=== PATIENT | male | born 1950 | race Caucasian/White ===

== ENCOUNTER 2019-12-10 10:53 | Emergency (ER) | payer MEDICARE ==
[~2019-12-10] VITALS: Ht 167.6 cm; Wt 122.6 kg
[~2019-12-10 10:53] MED LIST: BACL10TA2 PO; BLACK CHERRY CONCENT PO; HYDR-3965 PO; INDO50CA96 PO; LISI1TAB29 PO; METF500T PO; OMEG500C3 PO; PIRO20CA2 PO; URIC ACID PO; VITA1CAP PO; [UNRECOGNIZED DRUG - CODE] PO
[2019-12-10 13:16] LABS: BASOPHILS # (AUTO) 0.1 X10'3 (0-0.2); BASOPHILS % (AUTO) 1.2 % (0-1); EOSINOPHILS # (AUTO) 0.7 X10'3 (0-0.9); EOSINOPHILS % (AUTO) 6.2 % (0-6); HEMATOCRIT 40.1 % (42.0-52.0); HEMOGLOBIN 13.4 g/dl (14.0-17.9); LYMPHOCYTES # (AUTO) 2.7 X10'3 (1.1-4.8); LYMPHOCYTES % (AUTO) 24.7 % (21-51); MEAN CORPUSCULAR HEMOGLOBIN 29.4 PG (27.0-31.0); MEAN CORPUSCULAR HGB CONC 33.5 g/dL (33.0-36.5); MEAN CORPUSCULAR VOLUME 87.8 FL (78-98); MEAN PLATELET VOLUME 9.3 FL (7.4-10.4); MONOCYTES # (AUTO) 1.5 X10'3 (0-0.9); MONOCYTES % (AUTO) 13.7 % (2-12); NEUTROPHILS % (AUTO) 54.2 % (42-75); PLATELET COUNT 265 X10'3 (140-440); RED BLOOD COUNT 4.56 X10'6 (4.70-6.10); RED CELL DISTRIBUTION WIDTH 14.2 % (11.5-14.5); WHITE BLOOD COUNT 11.1 X10'3 (4.5-11.0)
[2019-12-10 13:22] LABS: ALANINE AMINOTRANSFERASE 24 U/L (12-78); ALBUMIN 3.4 G/DL (3.4-5.0); ALBUMIN/GLOBULIN RATIO 0.7 (1.1-1.5); ALKALINE PHOSPHATASE 78 IU/L (46-116); ANION GAP 6 (8-16); ASPARTATE AMINO TRANSFERASE 18 U/L (10-37); BILIRUBIN,TOTAL 0.3 MG/DL (0.1-1.0); BLOOD UREA NITROGEN 42 MG/DL (7-18); BUN/CREATININE RATIO 22.1 (5.4-32.0); CALCIUM 9.5 MG/DL (8.5-10.1); CHLORIDE 106 MMOL/L (99-107); GLUCOSE 124 MG/DL (70-104); POTASSIUM 4.3 MMOL/L (3.5-5.1); SODIUM 140 MMOL/L (135-145); TOTAL CARBON DIOXIDE 27.9 MMOL/L (24-32); eGFR 35 ML/MIN
[2019-12-10] MEDS ORDERED: CEPH500C5 PO (15:13)
[2019-12-10 15:35] VITALS: BP 141/89
== END 2019-12-10 15:37 | disposition home or self-care (01) ==
LOC: ER 10:54
DX: R60.9 Edema, unspecified (principal); R60.0 Localized edema; G47.30 Sleep apnea, unspecified; I12.9 Hypertensive chronic kidney disease with stage 1 through stage 4 chronic kidney disease, or unspecified chronic kidney disease; E11.22 Type 2 diabetes mellitus with diabetic chronic kidney disease; N18.9 Chronic kidney disease, unspecified; E66.01 Morbid (severe) obesity due to excess calories; Z56.0 Unemployment, unspecified; Z79.2 Long term (current) use of antibiotics; Z79.899 Other long term (current) drug therapy
CPT/HCPCS: 36415; 71045; 80053; 83880; 84484; 85025; 93005; 93971; 99285

== ENCOUNTER 2021-06-03 15:52 | Inpatient (IN) | payer MEDICARE ==
[~2021-06-03] VITALS: Ht 172.7 cm; Wt 115.0 kg
[2021-06-03 16:32] LABS: BASOPHILS % (AUTO) 0.3 % (0-1); EOSINOPHILS # (AUTO) 0.2 X10'3 (0-0.9); EOSINOPHILS % (AUTO) 1.9 % (0-6); HEMATOCRIT 37.6 % (42.0-52.0); HEMOGLOBIN 12.4 g/dl (14.0-17.9); LYMPHOCYTES # (AUTO) 1.2 X10'3 (1.1-4.8); LYMPHOCYTES % (AUTO) 12.7 % (21-51); MEAN CORPUSCULAR HEMOGLOBIN 29.8 PG (27.0-31.0); MEAN CORPUSCULAR VOLUME 90.4 FL (78-98); MEAN PLATELET VOLUME 8.6 FL (7.4-10.4); MONOCYTES # (AUTO) 1.2 X10'3 (0-0.9); MONOCYTES % (AUTO) 12.9 % (2-12); NEUTROPHILS # (AUTO) 6.6 X10'3 (1.8-7.7); NEUTROPHILS % (AUTO) 72.2 % (42-75); PLATELET COUNT 211 X10'3 (140-440); RED BLOOD COUNT 4.16 X10'6 (4.70-6.10); RED CELL DISTRIBUTION WIDTH 14.2 % (11.5-14.5); WHITE BLOOD COUNT 9.2 X10'3 (4.5-11.0)
[2021-06-03 16:41] LABS: D-DIMER 2.14 MG/L FEU (0-0.50)
[2021-06-03 16:44] LABS: ALANINE AMINOTRANSFERASE 43 U/L (12-78); ALBUMIN 3.1 G/DL (3.4-5.0); ALBUMIN/GLOBULIN RATIO 0.7 (1.1-1.5); ALKALINE PHOSPHATASE 56 IU/L (46-116); ANION GAP 10 (8-16); ASPARTATE AMINO TRANSFERASE 30 U/L (10-37); BILIRUBIN,TOTAL 0.4 MG/DL (0.1-1.0); BLOOD UREA NITROGEN 43 MG/DL (7-18); BUN/CREATININE RATIO 18.3 (5.4-32.0); C-REACTIVE PROTEIN 14.98 MG/DL (0.0-0.5); CALCIUM 8.2 MG/DL (8.5-10.1); CHLORIDE 105 MMOL/L (99-107); CREATININE 2.35 MG/DL (0.60-1.10); GLUCOSE 95 MG/DL (70-104); POTASSIUM 5.1 MMOL/L (3.5-5.1); SODIUM 139 MMOL/L (135-145); TOTAL CARBON DIOXIDE 23.8 MMOL/L (24-32); TOTAL PROTEIN 7.3 G/DL (6.4-8.2); eGFR 27 ML/MIN
[2021-06-03] MEDS ORDERED: ALLO100T25 PO (17:28)
[2021-06-03] MEDS ORDERED: TERB250T4 PO (17:28)
[2021-06-03] MEDS ORDERED: DICL20GE TP (17:28)
[2021-06-03] MEDS ORDERED: FENO54TA PO (17:28)
[2021-06-03] MEDS ORDERED: DICL25TA10 PO (17:28)
[2021-06-03] MEDS ORDERED: PRAV40TA3 PO (17:28)
[2021-06-03] MEDS ORDERED: CLON0.1T PO (17:28)
[2021-06-03] MEDS ORDERED: GABA600T13 PO (17:28)
[2021-06-03] MEDS ORDERED: GLYB5TAB7 PO (17:28)
[2021-06-03] MEDS ORDERED: ACET-3071 PO (17:28)
[2021-06-03] MEDS ORDERED: dexamethasone inj 8 MG in normal saline 50ml IV soln 50 ML IV ONE (17:50)
--- NOTE | 2021-06-03 19:33 | NUR ---
daniel covarrubias called to give phone number [phone]. update anaya number in computer [phone].
[2021-06-03] MEDS ORDERED: baclofen 10mg tablet PO PRN (20:45)
[2021-06-03] MEDS ORDERED: cloNIDine 0.1 mg tablet PO PRN (20:45)
[2021-06-03] MEDS ORDERED: HYDROmorphone inj. 0.5 MG/0.5 ML DISP.SYRIN IV PRN (20:50)
[2021-06-03] MEDS ORDERED: HYDROcodone/acetaminophen 10/325mg tab PO PRN (20:50)
[2021-06-03] MEDS ORDERED: diphenhydrAMINE 50 mg/ml inj IV PRN (20:50)
[2021-06-03] MEDS ORDERED: magnesium hydroxide 30ml (MOM) UD suspension PO PRN (20:50)
[2021-06-03] MEDS ORDERED: acetaminophen 650mg rectal suppository RC PRN (20:50)
[2021-06-03] MEDS ORDERED: ondansetron 4mg rapidly disintigrating tab PO PRN (20:50)
[2021-06-03] MEDS ORDERED: HYDROcodone/acetaminophen 5mg/325mg tablet PO PRN (20:50)
[2021-06-03] MEDS ORDERED: diphenhydrAMINE 25mg capsule PO PRN (20:50)
[2021-06-03] MEDS ORDERED: mag hydrox/Alum hydrox/simeth 30ml oral suspension PO PRN (20:50)
[2021-06-03] MEDS ORDERED: morphine 2 MG/ML inj. syringe IV PRN ×2 (20:50)
[2021-06-03] MEDS ORDERED: acetaminophen 325mg tablet PO PRN ×2 (20:50)
[2021-06-03] MEDS ORDERED: bisacodyl 10mg suppository rectal RC PRN (20:50)
[2021-06-03] MEDS ORDERED: ondansetron/PF 4mg/2ml inj IV PRN (20:50)
[2021-06-03 20:53] LABS: CLARITY,URINE CLEAR (Clear); COLOR,URINE YELLOW (Yellow); GLUCOSE, URINE NEGATIVE (Neg); KETONES,URINE NEGATIVE (Neg); LEUKOCYTE ESTERASE ,URINE NEGATIVE (Neg); NITRITES, URINE NEGATIVE (Neg); OCCULT BLOOD,URINE NEGATIVE (Neg); PROTEIN,URINE 30 mg/dl (Neg); UROBILINOGEN,URINE 0.2 E.U/dL (0.2-1.0)
[2021-06-03 20:56] LABS: UA COLLECTION TYPE URINAL
[2021-06-03 20:59] LABS: BACTERIA,URINE NONE SEEN /HPF (Neg); MUCUS STRANDS NONE SEEN /LPF (Neg); RBC,URINE NONE SEEN /HPF (0-2); SQUAMOUS EPITHELIAL CELL,UR FEW /LPF (FEW); WBC,URINE 0-4 /HPF (0-4)
[2021-06-03] MEDS ORDERED: dextrose 50%-water 50ml dispensing syringe IV PRN ×2 (21:00)
[2021-06-03] MEDS ORDERED: MESSAGE TO PHARMACY PO ONE (21:00)
[2021-06-03] MEDS ORDERED: ALBUTEROL INHALER 1 PUFF/90 MCG INHALER IH PRN (21:00)
[2021-06-03] MEDS ORDERED: temazepam 15mg capsule PO PRN (21:00)
[2021-06-03] MEDS ORDERED: dextrose ORAL solution 15 GM/59 ML bottle PO PRN ×2 (21:00)
[2021-06-03] MEDS ORDERED: glucagon, human recombinant 1mg kit SUBCUT PRN (21:00)
[2021-06-03] MEDS: atorvastatin 10mg tablet PO SCH (21:07)
[2021-06-03] MEDS: normal saline 1000ml 1,000 ML IV SCH (21:12)
[2021-06-03 21:42] LABS: HEMOGLOBIN A1C 6.6 % (4.5-6.2)
[2021-06-03 21:49] LABS: CREATINE KINASE 87 U/L (39-308); LIPASE 175 U/L (73-393); PHOSPHORUS 2.8 MG/DL (2.3-4.5); TROPONIN I < 0.04 NG/ML (0.0-0.05)
[2021-06-03 22:02] LABS: PARTIAL THROMBOPLASTIN TIME 32 SECONDS (22-32)
--- NOTE | 2021-06-03 22:02 | NUR ---
Patient in room ED 2. I have received report from Shagufta VERMA and had the opportunity to ask questions and assume patient care.
[2021-06-03 22:30] VITALS: BP 106/49
[2021-06-04 01:45] VITALS: BP 116/42
[2021-06-04 06:00] VITALS: BP 126/51
--- NOTE | 2021-06-04 06:16 | NUR ---
Patient in room ORTHO 4006. I have received report from LUCI monge and had the opportunity to ask questions and assume patient care.
--- NOTE | 2021-06-04 06:18 | NUR ---
Problems reprioritized. Patient report given, questions answered & plan of care reviewed with Manju VERMA.
[2021-06-04] MEDS: pantoprazole 40mg Tablet.DR PO SCH (07:04)
[2021-06-04] MEDS: gabapentin 300mg capsule PO SCH ×2 (07:04→22:08)
[2021-06-04] MEDS: docusate sod 100mg capsule PO SCH ×2 (07:04→22:07)
[2021-06-04] MEDS: fenofibrate 145mg tablet PO SCH (07:04)
[2021-06-04] MEDS: dexamethasone inj 6 MG in normal saline 50ml IV soln 50 ML IV SCH ×2 (07:05→22:07)
[2021-06-04] MEDS: CefTRIAXone/D5W-Rocephin 1gm 50 ML IV SCH (07:05)
[2021-06-04 07:09] LABS: BASOPHILS % (AUTO) 0.1 % (0-1); EOSINOPHILS % (AUTO) 0 % (0-6); HEMATOCRIT 37.7 % (42.0-52.0); HEMOGLOBIN 12.6 g/dl (14.0-17.9); LYMPHOCYTES # (AUTO) 1.3 X10'3 (1.1-4.8); LYMPHOCYTES % (AUTO) 14.7 % (21-51); MEAN CORPUSCULAR HGB CONC 33.5 g/dL (33.0-36.5); MEAN CORPUSCULAR VOLUME 89.6 FL (78-98); MEAN PLATELET VOLUME 8.7 FL (7.4-10.4); MONOCYTES # (AUTO) 0.7 X10'3 (0-0.9); MONOCYTES % (AUTO) 8.1 % (2-12); NEUTROPHILS % (AUTO) 77.1 % (42-75); PLATELET COUNT 225 X10'3 (140-440); RED BLOOD COUNT 4.21 X10'6 (4.70-6.10); RED CELL DISTRIBUTION WIDTH 13.7 % (11.5-14.5); WHITE BLOOD COUNT 9.1 X10'3 (4.5-11.0)
[2021-06-04 07:38] LABS: ALANINE AMINOTRANSFERASE 36 U/L (12-78); ALBUMIN 2.9 G/DL (3.4-5.0); ALBUMIN/GLOBULIN RATIO 0.6 (1.1-1.5); ALKALINE PHOSPHATASE 58 IU/L (46-116); ANION GAP 11 (8-16); ASPARTATE AMINO TRANSFERASE 27 U/L (10-37); BILIRUBIN,TOTAL 0.3 MG/DL (0.1-1.0); BLOOD UREA NITROGEN 42 MG/DL (7-18); BUN/CREATININE RATIO 19.4 (5.4-32.0); CALCIUM 8.4 MG/DL (8.5-10.1); CHLORIDE 106 MMOL/L (99-107); CHOL/HDL RATIO 3.3 (0.00-4.99); CHOLESTEROL 111 MG/DL (0-200); CREATININE 2.16 MG/DL (0.60-1.10); GLUCOSE 210 MG/DL (70-104); HDL CHOLESTEROL 34 MG/DL (35-60); LDL CHOLESTEROL 56 MG/DL (50-100); POTASSIUM 5.1 MMOL/L (3.5-5.1); SODIUM 141 MMOL/L (135-145); TOTAL CARBON DIOXIDE 24.5 MMOL/L (24-32); TOTAL PROTEIN 7.4 G/DL (6.4-8.2); TRIGLYCERIDES 94 MG/DL (20-135); eGFR 30 ML/MIN
[2021-06-04] MEDS ORDERED: azithromycin/NS 500mg/250ml 250 ML IV SCH ×2 (08:00→09:31)
[2021-06-04] MEDS ORDERED: lisinopril 20mg tablet PO SCH (08:00)
[2021-06-04] MEDS ORDERED: HYDROchlorothiazide 25mg tablet PO SCH (08:00)
[2021-06-04] MEDS ORDERED: enoxaparin 40mg/0.4ml syringe SUBCUT SCH (08:00)
[2021-06-04] MEDS ORDERED: fenofibrate 48mg tablet PO SCH (08:00)
--- NOTE | 2021-06-04 09:12 | NUR ---
DM consult: Pt with A1c 6.6%, DM education not warranted at this time. Will continue to follow. Addendum: 06/04/21 at [address] Amended: Links added.
[2021-06-04] MEDS ORDERED: PERFLUTREN PROTEIN-A MICROSPHR (Optison) 0.22 MG/ML 3ML VIAL IV ONE (09:30)
[2021-06-04 10:00] VITALS: BP 130/63
[2021-06-04] MEDS: azithromycin/NS 500mg/250ml 250 ML IV SCH (10:44)
[2021-06-04] MEDS ORDERED: PERFLUTREN PROTEIN-A MICROSPHR (Optison) 0.22 MG/ML 3ML VIAL IV PRN (11:00)
--- NOTE | 2021-06-04 13:17 | NUR ---
Page Sent PAGER ID: [phone] MESSAGE: [id number] Regarding RM 4006 Addison Batres- Critical Results* Gram + Cocci in clusters 1 bottle-anerobic.
[2021-06-04] MEDS: insulin Lispro (HumaLOG) vial - multi-dose SQ SCH ×2 (13:57→19:52)
[2021-06-04 14:00] VITALS: BP 120/66
[2021-06-04 18:00] VITALS: BP 115/53
--- NOTE | 2021-06-04 18:00 | NUR ---
Patient in room ORTHO 4006. I have received report from Manju VERMA and had the opportunity to ask questions and assume patient care. Addendum: 06/04/21 at 1857 by Audrey Ruth RN Amended: Links added.
--- NOTE | 2021-06-04 18:55 | NUR ---
Problems reprioritized. Patient report given,gertrude, RN questions answered & plan of care reviewed with .
--- NOTE | 2021-06-04 19:52 | NUR ---
Pt. awake A & O at this time with no c/o pain or SOB breath. Isolation for precaution for COVID-19 observed. Addendum: 06/05/21 at 0504 by Audrey Ruth RN Amended: Links added.
--- NOTE | 2021-06-04 21:30 | NUR ---
Pt. awake A & O at this time. C/o pain of 04/09 to rt shoulder but pain medication not due at this time; assisted pt to reposition intervention effective. Bed and tab alarms activated, bed in low position, and call light within reach. Reminded pt. to call nurse with needs; pt. verbalized understanding. Addendum: 06/05/21 at 0452 by Audrey Ruth RN Amended: Links added. Addendum: 06/05/21 at 0459 by Audrey Ruth RN Wrong pt.
[2021-06-04 22:00] VITALS: BP 113/68
[2021-06-04] MEDS: atorvastatin 10mg tablet PO SCH (22:08)
[2021-06-05] MEDS: VANCOMYCIN 750MG IV in NS 250 ML IV SCH (01:56)
[2021-06-05 02:00] VITALS: BP 124/66
--- NOTE | 2021-06-05 02:00 | NUR ---
Current Ns still infusing almost half full. Addendum: 06/05/21 at 0657 by Audrey Ruth RN Amended: Links added.
[2021-06-05] MEDS: normal saline 1000ml 1,000 ML IV SCH ×3 (02:50→21:49)
--- NOTE | 2021-06-05 04:52 | NUR ---
Pt. slept well with x 2 c/o pain medicated as ordered. No seizure episodes nor impulsive behavior this shift. Rails padded for safety. Addendum: 06/05/21 at 0454 by Audrey Ruth RN Amended: Links added. Addendum: 06/05/21 at 0457 by Audrey Ruth RN Wrong pt!
--- NOTE | 2021-06-05 05:04 | NUR ---
Pt. slept well with no SOB episodes and no hypoglycemia event this shift. Addendum: 06/05/21 at 0506 by Audrey Ruth RN Amended: Links added.
--- NOTE | 2021-06-05 06:53 | NUR ---
Patient in room ORTHO 4006. I have received report from Audrey VERMA and had the opportunity to ask questions and assume patient care.
--- NOTE | 2021-06-05 06:57 | NUR ---
Problems reprioritized. Patient report given, questions answered & plan of care reviewed with Lacey VERMA. Addendum: 06/05/21 at 0658 by Audrey Ruth RN Amended: Links added.
[2021-06-05 07:06] LABS: BASOPHILS % (AUTO) 0.1 % (0-1); EOSINOPHILS % (AUTO) 0 % (0-6); HEMATOCRIT 35.7 % (42.0-52.0); HEMOGLOBIN 11.6 g/dl (14.0-17.9); LYMPHOCYTES # (AUTO) 1.3 X10'3 (1.1-4.8); LYMPHOCYTES % (AUTO) 10.2 % (21-51); MEAN CORPUSCULAR HEMOGLOBIN 29.7 PG (27.0-31.0); MEAN CORPUSCULAR HGB CONC 32.5 g/dL (33.0-36.5); MEAN CORPUSCULAR VOLUME 91.3 FL (78-98); MEAN PLATELET VOLUME 8.5 FL (7.4-10.4); MONOCYTES # (AUTO) 1.2 X10'3 (0-0.9); MONOCYTES % (AUTO) 9.4 % (2-12); NEUTROPHILS # (AUTO) 10.4 X10'3 (1.8-7.7); NEUTROPHILS % (AUTO) 80.3 % (42-75); PLATELET COUNT 238 X10'3 (140-440); RED BLOOD COUNT 3.91 X10'6 (4.70-6.10); RED CELL DISTRIBUTION WIDTH 13.7 % (11.5-14.5); WHITE BLOOD COUNT 12.9 X10'3 (4.5-11.0)
[2021-06-05 07:21] LABS: ALANINE AMINOTRANSFERASE 31 U/L (12-78); ALBUMIN 2.7 G/DL (3.4-5.0); ALBUMIN/GLOBULIN RATIO 0.6 (1.1-1.5); ALKALINE PHOSPHATASE 45 IU/L (46-116); ANION GAP 10 (8-16); ASPARTATE AMINO TRANSFERASE 34 U/L (10-37); BILIRUBIN,TOTAL 0.4 MG/DL (0.1-1.0); BLOOD UREA NITROGEN 43 MG/DL (7-18); BUN/CREATININE RATIO 21.2 (5.4-32.0); CALCIUM 8.4 MG/DL (8.5-10.1); CHLORIDE 108 MMOL/L (99-107); CREATININE 2.03 MG/DL (0.60-1.10); GLUCOSE 173 MG/DL (70-104); POTASSIUM 4.9 MMOL/L (3.5-5.1); SODIUM 141 MMOL/L (135-145); TOTAL CARBON DIOXIDE 22.8 MMOL/L (24-32); TOTAL PROTEIN 6.9 G/DL (6.4-8.2); eGFR 32 ML/MIN
[2021-06-05] MEDS: pantoprazole 40mg Tablet.DR PO SCH (07:44)
[2021-06-05] MEDS: docusate sod 100mg capsule PO SCH ×2 (07:44→20:00)
[2021-06-05] MEDS: gabapentin 300mg capsule PO SCH ×2 (07:44→20:00)
[2021-06-05] MEDS: fenofibrate 145mg tablet PO SCH (07:44)
[2021-06-05] MEDS: CefTRIAXone/D5W-Rocephin 1gm 50 ML IV SCH (07:45)
[2021-06-05] MEDS: dexamethasone inj 6 MG in normal saline 50ml IV soln 50 ML IV SCH ×2 (07:45→20:01)
[2021-06-05] MEDS: enoxaparin 30mg/0.3ml syringe SUBCUT SCH (07:45)
[2021-06-05 08:12] VITALS: BP 122/68
[2021-06-05] MEDS: azithromycin/NS 500mg/250ml 250 ML IV SCH (10:30)
[2021-06-05] MEDS: insulin Lispro (HumaLOG) vial - multi-dose SQ SCH ×3 (10:33→20:14)
[2021-06-05 12:00] VITALS: BP 124/63
[2021-06-05 18:30] VITALS: BP 132/69
[2021-06-05] MEDS: lactobacillus rhamnosus 10,000 MMU CELLS/CAPSULE PO SCH (20:00)
[2021-06-05] MEDS: atorvastatin 10mg tablet PO SCH (20:08)
[2021-06-05 22:00] VITALS: BP 142/75
[2021-06-06 02:30] VITALS: BP 133/76
[2021-06-06] MEDS: VANCOMYCIN 750MG IV in NS 250 ML IV SCH (02:32)
[2021-06-06] MEDS: normal saline 1000ml 1,000 ML IV SCH (04:50)
[2021-06-06 05:10] VITALS: BP 150/83
--- NOTE | 2021-06-06 06:30 | NUR ---
Patient in room ORTHO 4006. I have received report from Violette RN and had the opportunity to ask questions and assume patient care.
[2021-06-06 07:06] LABS: BASOPHILS % (AUTO) 0.1 % (0-1); EOSINOPHILS % (AUTO) 0 % (0-6); HEMATOCRIT 36.3 % (42.0-52.0); HEMOGLOBIN 11.9 g/dl (14.0-17.9); LYMPHOCYTES # (AUTO) 1.5 X10'3 (1.1-4.8); MEAN CORPUSCULAR HEMOGLOBIN 29.8 PG (27.0-31.0); MEAN CORPUSCULAR HGB CONC 32.9 g/dL (33.0-36.5); MEAN CORPUSCULAR VOLUME 90.5 FL (78-98); MEAN PLATELET VOLUME 8.8 FL (7.4-10.4); MONOCYTES # (AUTO) 0.9 X10'3 (0-0.9); MONOCYTES % (AUTO) 9.1 % (2-12); NEUTROPHILS # (AUTO) 7.4 X10'3 (1.8-7.7); NEUTROPHILS % (AUTO) 75.8 % (42-75); PLATELET COUNT 255 X10'3 (140-440); RED BLOOD COUNT 4.01 X10'6 (4.70-6.10); RED CELL DISTRIBUTION WIDTH 13.9 % (11.5-14.5); WHITE BLOOD COUNT 9.7 X10'3 (4.5-11.0)
[2021-06-06 07:12] LABS: ALANINE AMINOTRANSFERASE 65 U/L (12-78); ALBUMIN 2.5 G/DL (3.4-5.0); ALBUMIN/GLOBULIN RATIO 0.6 (1.1-1.5); ALKALINE PHOSPHATASE 55 IU/L (46-116); ANION GAP 11 (8-16); ASPARTATE AMINO TRANSFERASE 61 U/L (10-37); BILIRUBIN,TOTAL 0.4 MG/DL (0.1-1.0); BLOOD UREA NITROGEN 43 MG/DL (7-18); BUN/CREATININE RATIO 25.1 (5.4-32.0); CHLORIDE 110 MMOL/L (99-107); CREATININE 1.71 MG/DL (0.60-1.10); GLUCOSE 177 MG/DL (70-104); SODIUM 144 MMOL/L (135-145); TOTAL CARBON DIOXIDE 23.2 MMOL/L (24-32); TOTAL PROTEIN 6.8 G/DL (6.4-8.2); eGFR 40 ML/MIN
[2021-06-06] MEDS: gabapentin 300mg capsule PO SCH (07:47)
[2021-06-06] MEDS: fenofibrate 145mg tablet PO SCH (07:47)
[2021-06-06] MEDS: docusate sod 100mg capsule PO SCH (07:47)
[2021-06-06] MEDS: lactobacillus rhamnosus 10,000 MMU CELLS/CAPSULE PO SCH (07:47)
[2021-06-06] MEDS: pantoprazole 40mg Tablet.DR PO SCH (07:47)
[2021-06-06] MEDS: enoxaparin 30mg/0.3ml syringe SUBCUT SCH (07:48)
[2021-06-06] MEDS: CefTRIAXone/D5W-Rocephin 1gm 50 ML IV SCH (07:48)
[2021-06-06] MEDS: dexamethasone inj 6 MG in normal saline 50ml IV soln 50 ML IV SCH (07:48)
[2021-06-06] MEDS: insulin Lispro (HumaLOG) vial - multi-dose SQ SCH ×2 (09:46→13:33)
[2021-06-06] MEDS: azithromycin/NS 500mg/250ml 250 ML IV SCH (09:47)
[2021-06-06] MEDS ORDERED: DEC4T PO (09:55)
[2021-06-06] MEDS ORDERED: LEVO500T89 PO (09:56)
[2021-06-06 11:39] VITALS: BP 133/60
--- NOTE | 2021-06-06 13:46 | NUR ---
Patient discharged to home, gave discharge instructions to the patient himself and his via the phone. Patient left in stable condition and did not need home oxygen as he was 94% on room air while ambulating. 20 gauge piv removed from left hand, no complications. Prescriptions were sent to [facility] in [place], left room via wheelchair to private vehicle with son lyndsey.
[2021-06-08] MEDS ORDERED: VANCOMYCIN LEVEL IV ONE (01:30)
== END 2021-06-06 13:50 | disposition home or self-care (01) | DRG 177 ==
LOC: ER 15:53 → ED HOLD 20:57 → ORTHO 4S 22:19
PROVIDERS: ADMIT Family Medicine; ATTEND Internal Medicine
PROC: CB121ZZ Planar Nuclear Medicine Imaging of Lungs and Bronchi using Technetium 99m (Tc-99m) (ICD-10-PCS; 2021-06-03)
PROC: 5A09357 Assistance with Respiratory Ventilation, Less than 24 Consecutive Hours, Continuous Positive Airway Pressure (ICD-10-PCS; principal; 2021-06-04)
PROC: 5A09357 Assistance with Respiratory Ventilation, Less than 24 Consecutive Hours, Continuous Positive Airway Pressure (ICD-10-PCS; 2021-06-06)
DX: U07.1 COVID-19 (principal); J12.82 Pneumonia due to coronavirus disease 2019; J96.01 Acute respiratory failure with hypoxia; N17.9 Acute kidney failure, unspecified; E11.22 Type 2 diabetes mellitus with diabetic chronic kidney disease; E66.01 Morbid (severe) obesity due to excess calories; E78.5 Hyperlipidemia, unspecified; G47.33 Obstructive sleep apnea (adult) (pediatric); E11.42 Type 2 diabetes mellitus with diabetic polyneuropathy; I12.9 Hypertensive chronic kidney disease with stage 1 through stage 4 chronic kidney disease, or unspecified chronic kidney disease; M10.9 Gout, unspecified; N18.9 Chronic kidney disease, unspecified; Z68.38 Body mass index [BMI] 38.0-38.9, adult; Z79.84 Long term (current) use of oral hypoglycemic drugs; Z87.891 Personal history of nicotine dependence; Z56.0 Unemployment, unspecified; Z79.899 Other long term (current) drug therapy
CPT/HCPCS: 36415; 71045; 78580; 80053; 80061; 81001; 82550; 82948; 83036; 83605; 83690; 83735; 83880; 84100; 84145; 84443; 84484; 85025; 85379; 85610; 85651; 85730; 86140; 87040; 87077; 87081; 87186; 87635; 93005; 93306; 94660; 94760; 96365; 99285; A9540; C9803; G0378; J0456; J0696; J1100; J1650; J1815; J3370; J7030; J7050

== ENCOUNTER 2021-08-02 09:43 | Inpatient (IN) | payer MEDICARE ==
[~2021-08-02] VITALS: Ht 152.4 cm; Wt 111.0 kg
[~2021-08-02 09:43] MED LIST changes: +ACET-3071 PO; +ALLO100T25 PO; -BLACK CHERRY CONCENT PO; +CLON0.1T PO; +DICL20GE TP; +DICL25TA10 PO; +FENO54TA PO; +GABA600T13 PO; +GLYB5TAB7 PO; -HYDR-3965 PO; -INDO50CA96 PO; -LISI1TAB29 PO; +LISI1TAB53 PO; -OMEG500C3 PO; -PIRO20CA2 PO; +PRAV40TA3 PO; +TERB250T89 PO; -URIC ACID PO; -VITA1CAP PO; -[UNRECOGNIZED DRUG - CODE] PO
[2021-08-02 11:29] LABS: BASOPHILS # (AUTO) 0.1 X10'3 (0-0.2); BASOPHILS % (AUTO) 0.6 % (0-1); EOSINOPHILS # (AUTO) 0.2 X10'3 (0-0.9); HEMATOCRIT 39.8 % (42.0-52.0); HEMOGLOBIN 13.4 g/dl (14.0-17.9); LYMPHOCYTES # (AUTO) 2.6 X10'3 (1.1-4.8); MEAN CORPUSCULAR HEMOGLOBIN 29.9 PG (27.0-31.0); MEAN CORPUSCULAR HGB CONC 33.6 g/dL (33.0-36.5); MEAN CORPUSCULAR VOLUME 88.9 FL (78-98); MEAN PLATELET VOLUME 8.6 FL (7.4-10.4); MONOCYTES # (AUTO) 2.3 X10'3 (0-0.9); MONOCYTES % (AUTO) 14.6 % (2-12); NEUTROPHILS # (AUTO) 10.4 X10'3 (1.8-7.7); NEUTROPHILS % (AUTO) 66.8 % (42-75); PLATELET COUNT 316 X10'3 (140-440); RED BLOOD COUNT 4.48 X10'6 (4.70-6.10); WHITE BLOOD COUNT 15.5 X10'3 (4.5-11.0)
[2021-08-02 11:40] LABS: ALANINE AMINOTRANSFERASE 40 U/L (12-78); ALBUMIN 3.4 G/DL (3.4-5.0); ALBUMIN/GLOBULIN RATIO 0.7 (1.1-1.5); ALKALINE PHOSPHATASE 53 IU/L (46-116); ANION GAP 13 (8-16); ASPARTATE AMINO TRANSFERASE 19 U/L (10-37); BILIRUBIN,TOTAL 0.7 MG/DL (0.1-1.0); BLOOD UREA NITROGEN 43 MG/DL (7-18); BUN/CREATININE RATIO 24.4 (5.4-32.0); C-REACTIVE PROTEIN 6.96 MG/DL (0.0-0.5); CALCIUM 10.1 MG/DL (8.5-10.1); CHLORIDE 103 MMOL/L (99-107); CREATININE 1.76 MG/DL (0.60-1.10); GLUCOSE 124 MG/DL (70-104); POTASSIUM 4.3 MMOL/L (3.5-5.1); SODIUM 141 MMOL/L (135-145); TOTAL CARBON DIOXIDE 25.5 MMOL/L (24-32); TOTAL PROTEIN 8.4 G/DL (6.4-8.2); eGFR 38 ML/MIN
[2021-08-02 12:27] LABS: PLATELET ESTIMATE NORMAL; TOTAL CELLS COUNTED 100
[2021-08-02] MEDS ORDERED: morphine 4 MG/ML inj SYRINge IV ONE (16:10)
[2021-08-02] MEDS ORDERED: morphine 2 MG/ML inj. syringe IV PRN ×3 (16:10→19:45)
--- NOTE | 2021-08-02 16:35 | NUR ---
relieving RN for break, pt is resting quietly on gurney, resp even and unlabored, c/o pain 07/10 to rt hand and elbow
[2021-08-02] MEDS ORDERED: methylPREDNISolone sod succ 125mg/2ml vial IV ONE (16:55)
--- NOTE | 2021-08-02 18:30 | NUR ---
Gait test: Pt was bearly able to stand at the edge of the bed (with max assist). His legs were trembling. Assisted pt back to bed.
[2021-08-02] MEDS ORDERED: acetaminophen 325mg tablet PO PRN (19:45)
[2021-08-02] MEDS ORDERED: ondansetron/PF 4mg/2ml inj IV PRN (19:45)
[2021-08-02] MEDS ORDERED: potassium Cl 20 mEq SR tablet PO PRN ×2 (19:45)
[2021-08-02] MEDS ORDERED: dextrose ORAL solution 15 GM/59 ML bottle PO PRN ×2 (19:45)
[2021-08-02] MEDS ORDERED: dextrose 50%-water 50ml dispensing syringe IV PRN ×2 (19:45)
[2021-08-02] MEDS ORDERED: MESSAGE TO PHARMACY PO ONE (19:45)
[2021-08-02] MEDS ORDERED: potassium Cl 40MEQ/1/2NS 520ml 520 ML IV PRN ×2 (19:45)
[2021-08-02] MEDS ORDERED: mag hydrox/Alum hydrox/simeth 30ml oral suspension PO PRN (19:45)
[2021-08-02] MEDS ORDERED: magnesium hydroxide 30ml (MOM) UD suspension PO PRN (19:45)
[2021-08-02] MEDS ORDERED: glucagon, human recombinant 1mg kit SUBCUT PRN (19:45)
[2021-08-02] MEDS: docusate sod 100mg capsule PO SCH (20:00)
[2021-08-02] MEDS: methylPREDNISolone sod succ/PF 40mg inj. IV SCH (20:00)
[2021-08-02] MEDS ORDERED: methylPREDNISolone sod succ 125mg/2ml vial IV SCH (20:00)
[2021-08-02] MEDS ORDERED: SITA100T11 PO (20:51)
[2021-08-02 21:00] LABS: RHEUM FACTOR QUAL REFLEX TITER NEGATIVE (Neg)
[2021-08-02] MEDS: insulin glargine (Lantus) pen - multi-dose SQ SCH (21:00)
--- NOTE | 2021-08-02 21:02 | NUR ---
There is an order for cpap, he can use the hospitals but will wait for his to bring his tomorrow.
[2021-08-02] MEDS: heparin, porcine 5000 units/ml vial SQ SCH (21:17)
[2021-08-02] MEDS: K and/or MAG REPLACEMENT MC SCH (21:55)
[2021-08-02] MEDS ORDERED: baclofen 10mg tablet PO PRN (23:05)
[2021-08-02] MEDS ORDERED: ACETAMINOPHEN PO PRN (23:05)
[2021-08-02] MEDS ORDERED: cloNIDine 0.1 mg tablet PO PRN (23:05)
--- NOTE | 2021-08-02 23:30 | NUR ---
Pt was given a turkey sandwich and milk.
--- NOTE | 2021-08-03 02:30 | NUR ---
PT WAS PLACED ON A HOSPITAL BED, AMBULATED SEVERAL STEPS TO CHAIR WITH ASSIST
[2021-08-03 02:47] LABS: BASOPHILS # (AUTO) 0.1 X10'3 (0-0.2); BASOPHILS % (AUTO) 0.8 % (0-1); EOSINOPHILS % (AUTO) 0.1 % (0-6); HEMATOCRIT 37.2 % (42.0-52.0); HEMOGLOBIN 12.4 g/dl (14.0-17.9); LYMPHOCYTES # (AUTO) 1.4 X10'3 (1.1-4.8); LYMPHOCYTES % (AUTO) 9.8 % (21-51); MEAN CORPUSCULAR HEMOGLOBIN 29.4 PG (27.0-31.0); MEAN CORPUSCULAR HGB CONC 33.4 g/dL (33.0-36.5); MEAN CORPUSCULAR VOLUME 88.2 FL (78-98); MEAN PLATELET VOLUME 8.6 FL (7.4-10.4); MONOCYTES # (AUTO) 1.1 X10'3 (0-0.9); MONOCYTES % (AUTO) 7.7 % (2-12); NEUTROPHILS # (AUTO) 11.8 X10'3 (1.8-7.7); NEUTROPHILS % (AUTO) 81.6 % (42-75); PLATELET COUNT 310 X10'3 (140-440); RED BLOOD COUNT 4.22 X10'6 (4.70-6.10); RED CELL DISTRIBUTION WIDTH 15.4 % (11.5-14.5); WHITE BLOOD COUNT 14.5 X10'3 (4.5-11.0)
[2021-08-03 02:59] LABS: ALANINE AMINOTRANSFERASE 35 U/L (12-78); ALBUMIN 2.9 G/DL (3.4-5.0); ALBUMIN/GLOBULIN RATIO 0.6 (1.1-1.5); ALKALINE PHOSPHATASE 67 IU/L (46-116); ANION GAP 11 (8-16); ASPARTATE AMINO TRANSFERASE 26 U/L (10-37); BILIRUBIN,TOTAL 0.8 MG/DL (0.1-1.0); BLOOD UREA NITROGEN 50 MG/DL (7-18); BUN/CREATININE RATIO 24.5 (5.4-32.0); CALCIUM 9.7 MG/DL (8.5-10.1); CHLORIDE 104 MMOL/L (99-107); CREATININE 2.04 MG/DL (0.60-1.10); GLUCOSE 292 MG/DL (70-104); POTASSIUM 4.5 MMOL/L (3.5-5.1); SODIUM 140 MMOL/L (135-145); TOTAL CARBON DIOXIDE 24.7 MMOL/L (24-32); TOTAL PROTEIN 7.8 G/DL (6.4-8.2); eGFR 32 ML/MIN
[2021-08-03] MEDS: docusate sod 100mg capsule PO SCH ×2 (08:00→20:26)
[2021-08-03] MEDS: K and/or MAG REPLACEMENT MC SCH ×2 (08:00→20:00)
[2021-08-03] MEDS: lisinopril 20mg tablet PO SCH (08:00)
[2021-08-03] MEDS: gabapentin 300mg capsule PO SCH ×2 (08:00→20:25)
[2021-08-03] MEDS ORDERED: HYDROchlorothiazide 25mg tablet PO SCH (08:00)
[2021-08-03] MEDS: heparin, porcine 5000 units/ml vial SQ SCH ×2 (08:00→20:26)
[2021-08-03] MEDS: methylPREDNISolone sod succ/PF 40mg inj. IV SCH ×2 (08:00→20:00)
[2021-08-03] MEDS: allopurinol 100mg tablet PO SCH (08:30)
[2021-08-03] MEDS: terbinafine 250mg tablet PO SCH (15:10)
[2021-08-03] MEDS: fenofibrate 48mg tablet PO SCH (15:10)
[2021-08-03 16:22] VITALS: BP 138/68
[2021-08-03 20:00] VITALS: BP 131/69
[2021-08-03] MEDS: insulin Lispro (HumaLOG) vial - multi-dose SQ SCH (20:23)
[2021-08-03] MEDS: pravastatin 40mg tablet PO SCH (22:25)
[2021-08-03] MEDS: insulin glargine (Lantus) pen - multi-dose SQ SCH (22:25)
[2021-08-04] VITALS: BP 125/58
[2021-08-04] MEDS ORDERED: HYDROcodone/acetaminophen 10/325mg tab PO PRN (03:15)
[2021-08-04] MEDS: HYDROcodone/acetaminophen 10/325mg tab PO PRN ×2 (03:29→20:27)
[2021-08-04 06:13] LABS: BASOPHILS # (AUTO) 0.1 X10'3 (0-0.2); BASOPHILS % (AUTO) 0.6 % (0-1); EOSINOPHILS # (AUTO) 0.1 X10'3 (0-0.9); EOSINOPHILS % (AUTO) 0.6 % (0-6); HEMATOCRIT 35.6 % (42.0-52.0); HEMOGLOBIN 11.9 g/dl (14.0-17.9); LYMPHOCYTES # (AUTO) 2.3 X10'3 (1.1-4.8); LYMPHOCYTES % (AUTO) 14.1 % (21-51); MEAN CORPUSCULAR HEMOGLOBIN 29.5 PG (27.0-31.0); MEAN CORPUSCULAR HGB CONC 33.5 g/dL (33.0-36.5); MEAN CORPUSCULAR VOLUME 88.1 FL (78-98); MEAN PLATELET VOLUME 8.8 FL (7.4-10.4); MONOCYTES % (AUTO) 12.2 % (2-12); NEUTROPHILS # (AUTO) 11.8 X10'3 (1.8-7.7); NEUTROPHILS % (AUTO) 72.5 % (42-75); PLATELET COUNT 361 X10'3 (140-440); RED BLOOD COUNT 4.04 X10'6 (4.70-6.10); RED CELL DISTRIBUTION WIDTH 15.3 % (11.5-14.5); WHITE BLOOD COUNT 16.2 X10'3 (4.5-11.0)
--- NOTE | 2021-08-04 06:20 | NUR ---
Problems reprioritized. Patient report given, questions answered & plan of care reviewed with LUCI Miller.
[2021-08-04 06:21] LABS: ALANINE AMINOTRANSFERASE 37 U/L (12-78); ALBUMIN 2.9 G/DL (3.4-5.0); ALBUMIN/GLOBULIN RATIO 0.6 (1.1-1.5); ALKALINE PHOSPHATASE 49 IU/L (46-116); ANION GAP 11 (8-16); ASPARTATE AMINO TRANSFERASE 32 U/L (10-37); BILIRUBIN,TOTAL 0.5 MG/DL (0.1-1.0); BLOOD UREA NITROGEN 62 MG/DL (7-18); CALCIUM 9.7 MG/DL (8.5-10.1); CHLORIDE 105 MMOL/L (99-107); GLUCOSE 147 MG/DL (70-104); POTASSIUM 4.3 MMOL/L (3.5-5.1); SODIUM 141 MMOL/L (135-145); TOTAL CARBON DIOXIDE 25.3 MMOL/L (24-32); TOTAL PROTEIN 7.6 G/DL (6.4-8.2); eGFR 33 ML/MIN
--- NOTE | 2021-08-04 06:50 | NUR ---
Patient in room DANIELLE 346. I have received report from LUCI Gil and had the opportunity to ask questions and assume patient care.
[2021-08-04 07:00] VITALS: BP 117/60
[2021-08-04] MEDS: docusate sod 100mg capsule PO SCH ×2 (07:50→20:27)
[2021-08-04] MEDS: allopurinol 100mg tablet PO SCH (07:51)
[2021-08-04] MEDS: gabapentin 300mg capsule PO SCH ×2 (07:51→20:27)
[2021-08-04] MEDS: heparin, porcine 5000 units/ml vial SQ SCH ×2 (07:53→20:35)
[2021-08-04] MEDS: lisinopril 20mg tablet PO SCH (07:53)
[2021-08-04] MEDS: terbinafine 250mg tablet PO SCH (07:54)
[2021-08-04] MEDS: prednisone 10mg tablet PO SCH ×2 (07:58→20:27)
[2021-08-04] MEDS: K and/or MAG REPLACEMENT MC SCH ×2 (08:00→20:00)
[2021-08-04] MEDS ORDERED: predniSONE 20 mg tablet PO SCH (08:00)
[2021-08-04] MEDS: fenofibrate 48mg tablet PO SCH ×2 (08:19→17:48)
--- NOTE | 2021-08-04 08:21 | NUR ---
Per pt. takes Fenofibrate at [facility], pharmacy aware and Primary RN notified.
[2021-08-04] MEDS: insulin Lispro (HumaLOG) vial - multi-dose SQ SCH ×3 (09:13→20:34)
[2021-08-04 11:00] VITALS: BP 103/53
--- NOTE | 2021-08-04 18:59 | NUR ---
Problems reprioritized. Patient report given, questions answered & plan of care reviewed with LUCI Montejo.
[2021-08-04 20:00] VITALS: BP 103/56
[2021-08-04] MEDS: pravastatin 40mg tablet PO SCH (20:37)
[2021-08-04] MEDS: insulin glargine (Lantus) pen - multi-dose SQ SCH (22:09)
[2021-08-05] VITALS: BP 115/61
--- NOTE | 2021-08-05 06:15 | NUR ---
Patient in room DANIELLE 346. I have received report from Gustabo and had the opportunity to ask questions and assume patient care.
--- NOTE | 2021-08-05 06:36 | NUR ---
Patient in room DANIELLE 346. I have received report from Gustabo VERMA traveler and had the opportunity to ask questions and assume patient care.
[2021-08-05 06:56] LABS: BASOPHILS % (AUTO) 0.1 % (0-1); EOSINOPHILS % (AUTO) 0 % (0-6); HEMATOCRIT 35.4 % (42.0-52.0); HEMOGLOBIN 11.8 g/dl (14.0-17.9); LYMPHOCYTES # (AUTO) 1.4 X10'3 (1.1-4.8); MEAN CORPUSCULAR HEMOGLOBIN 29.5 PG (27.0-31.0); MEAN CORPUSCULAR HGB CONC 33.4 g/dL (33.0-36.5); MEAN CORPUSCULAR VOLUME 88.3 FL (78-98); MEAN PLATELET VOLUME 8.5 FL (7.4-10.4); MONOCYTES # (AUTO) 0.7 X10'3 (0-0.9); MONOCYTES % (AUTO) 5.2 % (2-12); NEUTROPHILS # (AUTO) 10.9 X10'3 (1.8-7.7); NEUTROPHILS % (AUTO) 83.7 % (42-75); PLATELET COUNT 353 X10'3 (140-440); RED BLOOD COUNT 4.01 X10'6 (4.70-6.10); RED CELL DISTRIBUTION WIDTH 15.5 % (11.5-14.5); WHITE BLOOD COUNT 13.1 X10'3 (4.5-11.0)
[2021-08-05 06:59] LABS: ALANINE AMINOTRANSFERASE 43 U/L (12-78); ALBUMIN 2.6 G/DL (3.4-5.0); ALBUMIN/GLOBULIN RATIO 0.5 (1.1-1.5); ALKALINE PHOSPHATASE 47 IU/L (46-116); ANION GAP 13 (8-16); ASPARTATE AMINO TRANSFERASE 25 U/L (10-37); BILIRUBIN,TOTAL 0.5 MG/DL (0.1-1.0); BLOOD UREA NITROGEN 78 MG/DL (7-18); BUN/CREATININE RATIO 34.2 (5.4-32.0); CALCIUM 9.2 MG/DL (8.5-10.1); CHLORIDE 104 MMOL/L (99-107); CREATININE 2.28 MG/DL (0.60-1.10); GLUCOSE 174 MG/DL (70-104); POTASSIUM 4.9 MMOL/L (3.5-5.1); SODIUM 141 MMOL/L (135-145); TOTAL CARBON DIOXIDE 24.4 MMOL/L (24-32); TOTAL PROTEIN 7.5 G/DL (6.4-8.2); eGFR 28 ML/MIN
[2021-08-05] MEDS: K and/or MAG REPLACEMENT MC SCH ×2 (08:00→20:00)
[2021-08-05] MEDS: terbinafine 250mg tablet PO SCH (08:04)
[2021-08-05] MEDS: docusate sod 100mg capsule PO SCH ×2 (08:04→20:41)
[2021-08-05] MEDS: gabapentin 300mg capsule PO SCH ×2 (08:05→20:41)
[2021-08-05] MEDS: allopurinol 100mg tablet PO SCH (08:05)
[2021-08-05] MEDS: lisinopril 20mg tablet PO SCH (08:05)
[2021-08-05] MEDS: prednisone 10mg tablet PO SCH ×2 (08:06→20:42)
[2021-08-05] MEDS: heparin, porcine 5000 units/ml vial SQ SCH ×2 (08:07→20:44)
[2021-08-05] MEDS ORDERED: colchicine 0.6mg tablet PO ONE (08:50)
[2021-08-05] MEDS: insulin Lispro (HumaLOG) vial - multi-dose SQ SCH ×4 (09:54→21:51)
[2021-08-05] MEDS: normal saline 1000ml 1,000 ML IV SCH ×2 (10:28→20:47)
[2021-08-05 11:00] VITALS: BP 115/64
[2021-08-05 11:45] VITALS: BP 127/65
[2021-08-05] MEDS: fenofibrate 48mg tablet PO SCH (17:08)
[2021-08-05 18:00] VITALS: BP 148/71
--- NOTE | 2021-08-05 18:43 | NUR ---
Problems reprioritized. Patient report given, questions answered & plan of care reviewed with Merna VERMA.
--- NOTE | 2021-08-05 18:45 | NUR ---
Student documentation: I have reviewed and agree with all interventions, assessments performed and documented by eMrna Diez [facility] student.
[2021-08-05] MEDS: pravastatin 40mg tablet PO SCH (20:42)
[2021-08-05] MEDS: colchicine 0.6mg tablet PO SCH (20:42)
[2021-08-05] MEDS: insulin glargine (Lantus) pen - multi-dose SQ SCH (21:49)
[2021-08-06] VITALS: BP 111/58
[2021-08-06] MEDS: normal saline 1000ml 1,000 ML IV SCH ×2 (05:46→12:59)
--- NOTE | 2021-08-06 06:27 | NUR ---
Problems reprioritized. Patient report given, questions answered & plan of care reviewed with Yamila VERMA. Addendum: 08/06/21 at 0628 by Merna Pedersen RN Amended: Links added.
[2021-08-06 06:51] LABS: BASOPHILS % (AUTO) 0.2 % (0-1); EOSINOPHILS % (AUTO) 0 % (0-6); HEMATOCRIT 37.7 % (42.0-52.0); HEMOGLOBIN 12.5 g/dl (14.0-17.9); LYMPHOCYTES # (AUTO) 1.5 X10'3 (1.1-4.8); LYMPHOCYTES % (AUTO) 11.7 % (21-51); MEAN CORPUSCULAR HEMOGLOBIN 29.4 PG (27.0-31.0); MEAN CORPUSCULAR HGB CONC 33.2 g/dL (33.0-36.5); MEAN CORPUSCULAR VOLUME 88.5 FL (78-98); MEAN PLATELET VOLUME 8.5 FL (7.4-10.4); MONOCYTES # (AUTO) 0.6 X10'3 (0-0.9); MONOCYTES % (AUTO) 5.2 % (2-12); NEUTROPHILS # (AUTO) 10.4 X10'3 (1.8-7.7); NEUTROPHILS % (AUTO) 82.9 % (42-75); PLATELET COUNT 410 X10'3 (140-440); RED BLOOD COUNT 4.27 X10'6 (4.70-6.10); RED CELL DISTRIBUTION WIDTH 15.1 % (11.5-14.5); WHITE BLOOD COUNT 12.5 X10'3 (4.5-11.0)
[2021-08-06 07:02] LABS: ALANINE AMINOTRANSFERASE 56 U/L (12-78); ALBUMIN 2.7 G/DL (3.4-5.0); ALBUMIN/GLOBULIN RATIO 0.6 (1.1-1.5); ALKALINE PHOSPHATASE 56 IU/L (46-116); ANION GAP 8 (8-16); ASPARTATE AMINO TRANSFERASE 37 U/L (10-37); BILIRUBIN,TOTAL 0.4 MG/DL (0.1-1.0); BLOOD UREA NITROGEN 68 MG/DL (7-18); BUN/CREATININE RATIO 38.2 (5.4-32.0); CALCIUM 9.1 MG/DL (8.5-10.1); CHLORIDE 107 MMOL/L (99-107); CREATININE 1.78 MG/DL (0.60-1.10); GLUCOSE 177 MG/DL (70-104); POTASSIUM 4.7 MMOL/L (3.5-5.1); SODIUM 141 MMOL/L (135-145); TOTAL CARBON DIOXIDE 26.1 MMOL/L (24-32); TOTAL PROTEIN 7.6 G/DL (6.4-8.2); eGFR 38 ML/MIN
[2021-08-06 07:30] VITALS: BP 129/43
[2021-08-06] MEDS: terbinafine 250mg tablet PO SCH (07:39)
[2021-08-06] MEDS: prednisone 10mg tablet PO SCH (07:39)
[2021-08-06] MEDS: allopurinol 100mg tablet PO SCH (07:39)
[2021-08-06] MEDS: docusate sod 100mg capsule PO SCH (07:40)
[2021-08-06] MEDS: gabapentin 300mg capsule PO SCH (07:40)
[2021-08-06] MEDS: heparin, porcine 5000 units/ml vial SQ SCH (07:41)
[2021-08-06] MEDS: colchicine 0.6mg tablet PO SCH (07:43)
[2021-08-06] MEDS: K and/or MAG REPLACEMENT MC SCH (07:44)
[2021-08-06 07:57] LABS: MAGNESIUM 2.6 MG/DL (1.5-2.4); PHOSPHORUS 4.1 MG/DL (2.3-4.5)
[2021-08-06 08:34] LABS: CLARITY,URINE CLEAR (Clear); COLOR,URINE YELLOW (Yellow); GLUCOSE, URINE NEGATIVE (Neg); KETONES,URINE NEGATIVE (Neg); NITRITES, URINE NEGATIVE (Neg); OCCULT BLOOD,URINE NEGATIVE (Neg); PROTEIN,URINE TRACE mg/dl (Neg); UA COLLECTION TYPE CLN CATCH MIDSTREAM
[2021-08-06 08:35] LABS: LEUKOCYTE ESTERASE ,URINE NEGATIVE (Neg); UROBILINOGEN,URINE 0.2 E.U/dL (0.2-1.0)
[2021-08-06 08:42] LABS: BACTERIA,URINE NONE SEEN /HPF (Neg); MUCUS STRANDS FEW /LPF (Neg); RBC,URINE 0-2 /HPF (0-2); SQUAMOUS EPITHELIAL CELL,UR NONE SEEN /LPF (FEW); WBC,URINE NONE SEEN /HPF (0-4)
[2021-08-06 08:59] LABS: UA EOSINOPHILS NO EOS /HPF
[2021-08-06 09:01] LABS: TOTAL PROTEIN,URINE RANDOM 28.4 MG/DL
[2021-08-06] MEDS: insulin Lispro (HumaLOG) vial - multi-dose SQ SCH (09:14)
[2021-08-06] MEDS ORDERED: COL0.6T PO (09:39)
[2021-08-06] MEDS ORDERED: LISI20TA28 PO (09:39)
[2021-08-06 12:00] VITALS: BP 124/58
--- NOTE | 2021-08-06 14:20 | NUR ---
Pt discharged home with . Alert, oriented and appropriate for discharge. All belongings taken from room. IV dc'd by student RN. Wheelchaired to car by student RN. No tele. Meds will be picked up at [place] [facility].
== END 2021-08-06 14:20 | disposition home or self-care (01) | DRG 553 ==
LOC: ER 09:44 → ED HOLD 19:48 → SUR 3N 08-03 15:45
PROVIDERS: ADMIT Internal Medicine; ATTEND Family Medicine
DX: M13.0 Polyarthritis, unspecified (principal); N17.0 Acute kidney failure with tubular necrosis; Z68.42 Body mass index [BMI] 45.0-49.9, adult; E11.22 Type 2 diabetes mellitus with diabetic chronic kidney disease; M10.9 Gout, unspecified; E78.00 Pure hypercholesterolemia, unspecified; I12.9 Hypertensive chronic kidney disease with stage 1 through stage 4 chronic kidney disease, or unspecified chronic kidney disease; E78.5 Hyperlipidemia, unspecified; Z96.653 Presence of artificial knee joint, bilateral; N18.30 Chronic kidney disease, stage 3 unspecified; G47.33 Obstructive sleep apnea (adult) (pediatric); E66.9 Obesity, unspecified; M25.531 Pain in right wrist; M25.571 Pain in right ankle and joints of right foot; M25.572 Pain in left ankle and joints of left foot; Z86.16 Personal history of COVID-19; Z56.0 Unemployment, unspecified; Z79.899 Other long term (current) drug therapy; Z88.8 Allergy status to other drugs, medicaments and biological substances
CPT/HCPCS: 36415; 80053; 81001; 82570; 82948; 83735; 84100; 84156; 84300; 84550; 85007; 85025; 85651; 86038; 86140; 86430; 87207; 94760; 97116; 97162; 97530; 99285; G0378; J1644; J1815; J2270; J2920; J2930; J7030; J7512

== ENCOUNTER 2024-09-23 09:44 | Day surgery (SDC) | payer MEDICARE, MEDICAID ==
[2024-09-23] VITALS (9 sets, daily range): BP systolic 126–143; BP diastolic 60–73; PULSE 64–74; RESP 16; TEMP 97.9; O2SAT 91–94
[~2024-09-23] VITALS: Ht 170.2 cm; Wt 121.7 kg
[~2024-09-23 09:44] MED LIST changes: +COL0.6T PO; -DICL20GE TP; -DICL25TA10 PO; +GABA-1405 PO; -GABA600T13 PO; -LISI1TAB53 PO; +SITA100T11 PO
[2024-09-23] MEDS ORDERED: DICL25TA10 PO (11:02)
[2024-09-23] MEDS ORDERED: POLY119P2 PO (11:02)
[2024-09-23] MEDS ORDERED: LISI20TA28 PO (11:02)
[2024-09-23] MEDS ORDERED: ALLO200T PO (11:02)
[2024-09-23] MEDS ORDERED: MECO10005 PO (11:02)
[2024-09-23] MEDS ORDERED: MULT-1085 PO (11:02)
[2024-09-23] MEDS ORDERED: DAPA10TA PO (11:02)
[2024-09-23] MEDS ORDERED: DOCU-337 PO (11:02)
[2024-09-23] MEDS ORDERED: SENN-25 PO (11:02)
[2024-09-23] MEDS: LORazepam 0.5 MG tablet PO PRN (11:56)
[2024-09-23] MEDS: diphenhydrAMINE 25mg capsule PO PRN (11:57)
[2024-09-23] MEDS: normal saline 1,000 ML IV SCH (11:58)
[2024-09-23] MEDS ORDERED: fentaNYL/PF 50MCG/1 ML 2ML syringe ONE (12:56)
[2024-09-23] MEDS ORDERED: verapamil 2.5 mg/ml inj IV ONE ×2 (12:56→13:02)
[2024-09-23] MEDS ORDERED: iohexol 350MG/ML 100ml bottle IV ONE (12:56)
[2024-09-23] MEDS ORDERED: LIDOcaine 1% (10mg/ml) 2ml vial ONE (12:56)
[2024-09-23] MEDS ORDERED: midazolam 1 mg/ML 2ml injection ONE (12:56)
[2024-09-23] MEDS ORDERED: heparin 1,000unit/ml 10ml vial 10 ML ONE (12:56)
[2024-09-23] MEDS ORDERED: nitroGLYCERIN 500mcg/5mL D5W 5 ML IV ONE (12:57)
[2024-09-23] MEDS ORDERED: HYDROcodone/acetaminophen 10/325mg tab PO PRN (13:45)
[2024-09-23] MEDS ORDERED: HYDROcodone/acetaminophen 5mg/325mg tablet PO PRN (13:45)
[2024-09-23] MEDS ORDERED: ASPI81TA52 PO (15:02)
== END 2024-09-23 17:07 | disposition home or self-care (01) ==
LOC: SSTAY O 09:44
PROVIDERS: ATTEND Internal Medicine Interventional Cardiology
DX: R94.39 Abnormal result of other cardiovascular function study (principal); I25.10 Atherosclerotic heart disease of native coronary artery without angina pectoris; I12.9 Hypertensive chronic kidney disease with stage 1 through stage 4 chronic kidney disease, or unspecified chronic kidney disease; E11.22 Type 2 diabetes mellitus with diabetic chronic kidney disease; N18.9 Chronic kidney disease, unspecified; E78.00 Pure hypercholesterolemia, unspecified; G47.33 Obstructive sleep apnea (adult) (pediatric); M10.9 Gout, unspecified; Z79.84 Long term (current) use of oral hypoglycemic drugs; Z79.899 Other long term (current) drug therapy; Z88.8 Allergy status to other drugs, medicaments and biological substances
CPT/HCPCS: 71046; 82948; 93005; 93458; 93880; 93970; 94010; 94760; A6258; A6402; C1769; C1894; J1644; J2003; J2250; J3010; J3490; J7030; Q0163; Q9967; Z7610; 99152

== ENCOUNTER 2024-09-30 12:32 | Outpatient (CLI) | payer MEDICARE, MEDICAID ==
[~2024-09-30] VITALS: Ht 167.6 cm; Wt 120.2 kg
[~2024-09-30 12:32] MED LIST changes: -ACET-3071 PO; -ALLO100T25 PO; +ALLO200T PO; +ASPI81TA52 PO; -BACL10TA2 PO; +CEFAZOLIN SODIUM 3 GM VIAL IV ONE; -CLON0.1T PO; -COL0.6T PO; +DAPA10TA PO; +DICL25TA10 PO; +DOCU-337 PO; +LISI20TA28 PO; +MECO10005 PO; +MULT-1085 PO; +POLY119P2 PO; +SENN-25 PO; -SITA100T11 PO; -TERB250T89 PO
[2024-09-30] MEDS ORDERED: ASPI-612 PO (14:16)
[2024-09-30] MEDS ORDERED: DICL387C TOP (14:16)
[2024-09-30 14:17] LABS: BILIRUBIN,URINE NEGATIVE (Neg); CLARITY,URINE CLEAR (Clear); COLOR,URINE YELLOW (Yellow); GLUCOSE, URINE >=1000 mg/dl (Neg); KETONES,URINE NEGATIVE (Neg); LEUKOCYTE ESTERASE ,URINE NEGATIVE (Neg); NITRITES, URINE NEGATIVE (Neg); OCCULT BLOOD,URINE NEGATIVE (Neg); PROTEIN,URINE TRACE mg/dl (Neg); UROBILINOGEN,URINE 0.2 E.U/dL (0.2-1.0)
[2024-09-30 14:19] LABS: BASOPHILS # (AUTO) 0.1 X10'3 (0-0.2); EOSINOPHILS # (AUTO) 0.6 X10'3 (0-0.9); EOSINOPHILS % (AUTO) 6.3 % (0-6); LYMPHOCYTES # (AUTO) 2.2 X10'3 (1.1-4.8); LYMPHOCYTES % (AUTO) 22.6 % (21-51); MEAN CORPUSCULAR HEMOGLOBIN 31.1 PG (27.0-31.0); MEAN CORPUSCULAR VOLUME 94.2 FL (78-98); MEAN PLATELET VOLUME 9.6 FL (7.4-10.4); MONOCYTES % (AUTO) 9.7 % (2-12); NEUTROPHILS # (AUTO) 5.9 X10'3 (1.8-7.7); NEUTROPHILS % (AUTO) 60.4 % (42-75); PRE OP HEMATOCRIT 48.3 % (42.0-52.0); PRE OP HEMOGLOBIN 15.9 g/dL (14.0-17.9); PRE OP PLATELET COUNT 213 X10'3 (140-440); PRE OP WHITE BLOOD COUNT 9.8 10'3 (4.8-10.8); RED BLOOD COUNT 5.13 X10'6 (4.70-6.10); RED CELL DISTRIBUTION WIDTH 15.1 % (11.5-14.5); UA COLLECTION TYPE CLN CATCH MIDSTREAM
[2024-09-30 14:24] LABS: BACTERIA,URINE NONE SEEN /HPF (Neg); MUCUS STRANDS NONE SEEN /LPF (Neg); RBC,URINE 0-2 /HPF (0-2); SQUAMOUS EPITHELIAL CELL,UR NONE SEEN /LPF (FEW); WBC,URINE 0-4 /HPF (0-4)
[2024-09-30 14:32] LABS: PRE OP PROTIME 10.6 SECONDS (9.0-12.0)
[2024-09-30 14:33] LABS: HEMOGLOBIN A1C 6.9 % (4.5-6.2)
[2024-09-30 14:34] LABS: ALBUMIN 3.7 G/DL (3.4-5.0); ALBUMIN/GLOBULIN RATIO 0.9 (1.1-1.5); ALKALINE PHOSPHATASE 81 IU/L (46-116); BLOOD UREA NITROGEN 53 MG/DL (7-18); BUN/CREATININE RATIO 25.6 (10.0-20.0); CALCIUM 9.6 MG/DL (8.5-10.1); CHLORIDE 108 MMOL/L (99-107); CREATININE 2.07 MG/DL (0.60-1.10); PRE OP ALT 32 U/L (30-65); PRE OP ANION GAP 9 (8-16); PRE OP AST 16 U/L (10-37); PRE OP BILIRUB, TOTAL 0.3 MG/DL (0.0-1.0); PRE OP GLUCOSE 181 MG/DL (70-104); PRE OP POTASSIUM 5.3 MMOL/L (3.4-5.1); PRE OP SODIUM 142 MMOL/L (135-145); TOTAL CARBON DIOXIDE 25.5 MMOL/L (24-32); TOTAL PROTEIN 7.6 G/DL (6.4-8.2); eGFR 31 ML/MIN
[2024-09-30] MEDS ORDERED: DICL100G59 TOP (17:17)
[2024-09-30] MEDS ORDERED: GLYB1.5T2 PO (17:18)
[2024-10-02 04:52] LABS: ABG BASE EXCESS -1.7 mmol/L (-2.0-3.0); ABG HCO3 24.1 mmol/L (21.0-28.0); ABG OXYGEN SATURATION 90.6 % (94.0-98.0); ABG PCO2 (T) 44.2 mmHg (35.0-48.0); ABG PH (T) 7.354 (7.350-7.450); ABG PO2 (T) 57.5 mmHg (83.0-108.0); ALLEN'S TEST POSITIVE; FCOHb 0.5 % (0.5-1.5); FHHb 9.4 % (0.0-5.0); FO2Hb 90.1 % (94.0-98.0); TOTAL HEMOGLOBIN 16.3 G/dl (13.5-17.5)
[2024-10-02] MEDS ORDERED: VANCOMYCIN 1,500MG inj. 1,500 MG in normal saline 500ml IV soln 300 ML IV ONE (05:30)
[2024-10-02] MEDS ORDERED: ringers solution, lacted 1,000 ML IV SCH (05:30)
[2024-10-02] MEDS ORDERED: famotidine 20mg tablet PO ONE (05:30)
[2024-10-02] MEDS ORDERED: dextrose 50%-water 50ml dispensing syringe IV PRN (05:30)
[2024-10-02] MEDS ORDERED: Insulin Reg/NS 100units/100mL 100 ML IV SCH (05:30)
[2024-10-02] MEDS ORDERED: Cefazolin 3 GM/100ML NS IVPB 100 ML IV ONE (05:30)
[2024-10-02] MEDS ORDERED: metoprolol tartrate 12.5mg (1/2 tablet) PO ONE (05:30)
[2024-10-02] MEDS ORDERED: insulin glargine (Lantus) pen - multi-dose SQ PRN (05:30)
[2024-10-02] MEDS ORDERED: mupirocin 2% nasal ointment 1gm UD NS ONE (05:30)
[2024-10-21] MEDS ORDERED: ALLO100T PO (11:12)
== END 2024-09-30 23:59 | disposition home or self-care (01) ==
LOC: LAB 12:32 → EDSTATUS 10-02 08:30
PROVIDERS: ATTEND Thoracic Surgery (Cardiothoracic Vascular Surgery)
DX: I25.10 Atherosclerotic heart disease of native coronary artery without angina pectoris (principal)
CPT/HCPCS: 36415; 36600; 80053; 81001; 82803; 83036; 85018; 85025; 85610; 85730; 86885; 86900; 86901; 86920; 87081; 93005; 94010; A4615; J0690; J1815; J3370; J3372; J7040; J7120

== ENCOUNTER 2025-06-17 10:47 | Emergency (ER) | payer MEDICARE, MEDICAID ==
[~2025-06-17] VITALS: Ht 172.7 cm; Wt 118.2 kg
[~2025-06-17 10:47] MED LIST changes: +ALLO100T PO; -ALLO200T PO; +ASPI-612 PO; -ASPI81TA52 PO; -CEFAZOLIN SODIUM 3 GM VIAL IV ONE; +DICL100G59 TOP; -DOCU-337 PO; +GLYB1.5T2 PO; -GLYB5TAB7 PO; -MECO10005 PO; -MULT-1085 PO; -POLY119P2 PO; +PRAV40TA17 PO; -PRAV40TA3 PO; -SENN-25 PO
[2025-06-17 11:14] VITALS: TEMP 97.9
[2025-06-17] MEDS: HYDROcodone/acetaminophen 10/325mg tab PO ONE (11:17)
--- NOTE | 2025-06-17 11:29 | ELECTROCARDIOGRAPH REPORT ---
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 Luke Deutsch Measurements Intervals [place] Rate: 83 P: 67 PA: 164 QRS: 87 QRSD: 112 T: 8 QT: 356 QTc: 419 Interpretive Statements Sinus rhythm Ventricular premature complex Borderline intraventricular conduction delay Borderline T abnormalities, anterior leads Baseline wander in lead(s) V2 Electronically Signed On 06-17-2025 19:18:[address] Luke Deutsch Please click the below link to view image of tracing.
[2025-06-17 11:30] LABS: MEAN PLATELET VOLUME 9.1 FL (7.4-10.4); RED CELL DISTRIBUTION WIDTH 15.4 % (11.5-14.5)
--- NOTE | 2025-06-17 11:51 | Physician Documentation ---
History of Present Illness General Chief Complaint: Trauma Level 2 Stated Complaint: FALL OFF LADDER Time Seen by MD: 11:26 Primary Medical Doctor: Kostas Merchant History of Present Illness Initial Comments The patient is a 75-year-old male with a history of severe multivessel coronary artery disease (status post CABG x4), chronic renal disease (patient has an appointment with his pan tank worker the end of this month), obesity, type 2 diabetes, hypertension and hyperlipidemia who fell off a 10 ft ladder yesterday (without loss of consciousness) and comes in today with ongoing right-sided lumbosacral pain. He has had no gross hematuria. Medication Reconciliation Allergies: Coded Allergies: glipizide (Verified Allergy, Unknown, SHAKY, 09/30/24) levofloxacin (Verified Allergy, Unknown, TENDONOPATHY, 09/30/24) empagliflozin (Verified Adverse Reaction, Severe, MOOD CHANGES, MUSCLE PAINS, 08/02/21) Scheduled Allopurinol* (Allopurinol*), 3 TAB PO DAILY, (Reported) Aspirin (Aspir 81), 1 TAB PO DAILY, (Reported) Dapagliflozin Propanediol (Farxiga), 1 TAB PO DAILY, (Reported) Diclofenac Sodium (Diclofenac Sodium), 25 MG PO BID, (Reported) Fenofibrate (Fenofibrate), 1 TAB PO BID, (Reported) Gabapentin (Gabapentin), 1 TAB PO BID, (Reported) Glyburide,Micronized (Glyburide Micronized), 1 TAB PO BID, (Reported) Lisinopril (Lisinopril), 1 TAB PO DAILY, (Reported) Metformin Hcl* (Glucophage*), 1 TAB PO BID, (Reported) Pravastatin Sodium (Pravastatin Sodium), 1 TAB PO DAILY, (Reported) Scheduled PRN Diclofenac Sodium (Diclofenac Sodium), 1 APPLIC TOP for pain, (Reported) Past Medical History Past Medical History: High Cholesterol, Hypertension, Sleep Apnea, Chronic Kidney Disease, Diabetes Past Surgical History: no surgical history Smoking: Non-Smoker, Quit greater than 1 year Alcohol Use: None Drug Use: none Lives with: Spouse Lives In: Home Occupation: unemployed Review of Systems ROS Constitutional: Denies chills, fatigue, fever, weight gain or weight loss. HEENT: Denies hearing loss, sinus pressure or visual changes. Respiratory: Denies cough, shortness of breath or wheezing. Cardiovascular: Denies chest pain, pain while walking (claudication), edema or palpitations. Gastrointestinal: Denies abdominal pain, blood in stool, constipation, diarrhea, heartburn, loss of appetite, nausea or vomiting. Genitourinary: Denies painful urination (dysuria), excessive amount of urine (polyuria) or urinary frequency. Metabolic/Endocrine: Denies cold intolerance, heat intolerance, excessive thirst (polydipsia) or excessive hunger (polyphagia). Neurological: Denies dizziness, extremity numbness, extremity weakness, headaches, seizures or tremors. Psychiatric: Denies anxiety or depression. Integumentary: Denies breast discharge, breast lump, hives, mole change(s), rash or skin lesion. Musculoskeletal: Pain right of center lumbosacral area. Hematologic: Denies easily bleeding, easily bruises, lymphedema or issues with blood clots. Immunologic: Denies food allergies or seasonal allergies. Physical Exam Physical Exam Vital Signs: Temperature: 97.9, Source: Oral, Heart Rate: 82, Respiratory Rate: 17, BP: 132/74, Pulse Oximetry: 91, Weight: 118.180 Physical Exam Physical Exam Vitals and nursing note reviewed. Constitutional: General: Patient is awake, alert, oriented x 4 in no acute distress and well appearing. Speech is clear and lucid. Appearance: Normal appearance. Patient is not ill-appearing, toxic-appearing or diaphoretic. HENT: Head: Normocephalic , abrasions over the right side of the face and head. Mouth/Throat: Mouth: Mucous membranes are moist. Pharynx: Oropharynx is clear. Eyes: General: No scleral icterus. Extraocular Movements: Extraocular movements intact. Pupils: Pupils are equal, round, and reactive to light. Neck: Supple, no Kernig or Brudzinski sign. Cardiovascular: Rate and Rhythm: Normal rate and regular rhythm. Heart sounds: No murmur heard. Pulmonary: Effort: No respiratory distress. Breath sounds: No wheezing, rhonchi or rales. Abdominal: General: There is no distension. Palpations: There is no fluid wave, hepatomegaly or mass. Tenderness: There is no abdominal tenderness. There is no guarding. Musculoskeletal: General: No swelling or deformity. Skin: Coloration: Skin is not jaundiced. Findings: No erythema or rash. Neurological: Mental Status: Patient is alert. Progress Results/Orders Results/Orders Completed Orders - DELIO MARTINEZ MD Hydrocodone/Apap 10/325 ([place] 10/325mg (06/17/25 11:15) Medications Received in ER Medications (Trade) Dose Ordered Sig/Adonis Route PRN Reason Start Time Stop Time Status Last Admin Dose Admin ([place] 10/325mg tab) 1 tab ONCE ONCE PO 06/17/25 11:15 06/17/25 11:16 DC 06/17/25 11:17 1 TAB Vital Signs 06/17/25 06/17/25 06/17/25 06/17/25 10:50 11:14 11:17 12:58 Temp 97.9 97.9 Pulse 78 82 83 Resp 18 17 20 B/P (MAP) 151/82 137/76 (96) Pulse Ox 92 91 91 O2 Flow Rate 0 Laboratory Tests Test 06/17/25 11:24 White Blood Count 11.3 H Red Blood Count 5.01 Hemoglobin 15.2 Hematocrit 45.5 Mean Corpuscular Volume 90.8 Mean Corpuscular Hemoglobin 30.4 Mean Corpuscular Hemoglobin Concent 33.4 Red Cell Distribution Width 15.4 H Platelet Count 184 Mean Platelet Volume 9.1 Neutrophils (%) (Auto) 69.1 Lymphocytes (%) (Auto) 16.7 L Monocytes (%) (Auto) 11.6 Eosinophils (%) (Auto) 2.2 Basophils (%) (Auto) 0.4 Neutrophils # (Auto) 7.8 H Lymphocytes # (Auto) 1.9 Monocytes # (Auto) 1.3 H Eosinophils # (Auto) 0.3 Basophils # (Auto) 0.0 CBC Comment Prothrombin Time 10.5 INR International Normalized Ratio 1.0 Coagulation Comments Sodium Level 138 Potassium Level 4.5 Chloride Level 105 Carbon Dioxide Level 24.0 Anion Gap 9 Blood Urea Nitrogen 42 H Creatinine 2.11 H Estimated GFR/1.73 m2 31 BUN/Creatinine Ratio 19.9 Glucose Level 120 H Calcium Level 9.5 Total Bilirubin 0.8 Aspartate Amino Transf (AST/SGOT) 18 Alanine Aminotransferase (ALT/SGPT) 15 Alkaline Phosphatase 48 Total Creatine Kinase 93 Creatine Kinase MB 0.8 Creatine Kinase MB Relative Index Troponin I High Sensitivity 16 Total Protein 7.5 Albumin 3.5 Globulin 4.0 Albumin/Globulin Ratio 0.9 L Lipase 43 Chemistry Comments Medical Decision Making Findings This 75-year-old man fell off a 10 ft ladder yesterday came in complaining of low back pain. He does have a compression fracture of L4 with no neurological deficits. He has worsening renal function but has a follow-up appointment with his pan tank worker the end of this month. He is able to ambulate with difficulty. I am going to discharge him home with pain medication. Departure Disposition: 01 HOME / SELF CARE / HOMELESS Impression: Primary Impression: Fracture, lumbar vertebra, compression Additional Impression: Chronic kidney disease Condition: Stable Additional Instructions: It is important to see your doctor or primary care provider. Emergency care may be incomplete without proper follow-up. Symptoms sometimes change or new symptoms might arise after you leave the emergency department. It is important that you call your doctor if you become worse in any way, or return to the emergency department. You are strongly urged to follow-up with your physician to assure complete and thorough care. Please call your doctor's office today, and informed them that you were seen in the emergency department, and that you need to be seen immediately for close follow-up. If you do not have a primary care doctor we encourage you to proactively seek a local physician for close follow-up. Consider local clinics, [facility], or local [facility]. Prior to discharge we spoke at length concerning symptoms that would merit reevaluation, but please return to the emergency department for any symptoms that are concerning to you, and we will be happy to continue your evaluation and treatment. Please note you can always return to the emergency department if you are having difficulty coordinating close follow-up. If medications were prescribed, you should fill them at your local pharmacy immediately and take only as prescribed. Bring your new medications to your doctors follow-up visit to discuss any changes that would be necessary. Please check [facility] for any results you did not receive in the Emergency Department: often we are unable to get all your tests back before you leave, and these tests need to be reviewed by your PCP and yourself. You can also call Medical Records if you are unable to access the internet to see Catarizmt. Return to the emergency department immediately for worsening chest pain, difficulty breathing, sweating, or other concerning emergent symptoms. Referrals: NO PRIMARY CARE PROVIDER (PCP) Prescriptions Hydrocodone Bit/Acetaminophen 5/325 MG ([place] 5/325 MG) 5 Mg/325 Mg Tablet 1-2 TAB PO Q4-6 hours PRN for pain, #20 TAB Prov: DELIO MARTINEZ MD 06/17/25 Signature Scribe Signature: . Attestation: . DELIO MARTINEZ MD Jun 17, 2025 11:51
--- NOTE | 2025-06-17 11:51 | RADIOLOGY REPORT ---
CT CT HEAD INDICATION: neck pain trauma EXAM DATE: 06/17/2025 11:28 AM COMPARISON: None RADIATION DOSE: CTDIvol: 66 mGy, DLP: 1321 mGy*cm PROCEDURE: CT scans of the head were obtained from the vertex to the skull base. Sagittal and coronal reconstructions were provided. All CT scans at this medical facility are performed using dose modulation techniques as appropriate to a performed exam including the following: Automated exposure control was utilized; adjustment of the MA and/or KV according to patient size; and use of iterative reconstruction technique. FINDINGS: There is sulcal and ventricular prominence. The brainshows normal morphology and ty-white matter differentiation, without intracranial hemorrhage, extra-axial fluid collection, mass effect or acute large vessel infarct. The ventricles are normal in size. The basal cisterns are patent. The skull and visible facial bones are intact. The paranasal sinuses, mastoid air cells and middle ear cavities are well-aerated. The soft tissues of the scalp are unremarkable. IMPRESSION: No acute intracranial abnormality.
[2025-06-17 11:52] LABS: CREATININE 2.11 MG/DL (0.60-1.10); TOTAL CARBON DIOXIDE 24.0 MMOL/L (24-32); eCRCL 29 ML/MIN; eGFR 31 ML/MIN
[2025-06-17 11:54] LABS: CREATINE KINASE MB 0.8 ng/ml (0.3-3.6)
--- NOTE | 2025-06-17 11:58 | RADIOLOGY REPORT ---
EXAM: CT CT CERVICAL SPINE INDICATION: Neck pain trauma EXAM DATE: 06/17/2025 11:31 AM COMPARISON: None. TECHNIQUE: Multiple axial CT images of the cervical spine were obtained using bone algorithm. Sagittal and coronal reformatting was done. Bone and soft tissue windows were reviewed. Radiation Dose Information: CT Dose: CTDI volume is 25.7 mGy. Dose-length product is 586.6 mGy*cm FINDINGS: The cervical alignment is intact. No acute cervical spine fracture is identified. There is a concave deformity in the endplates. The vertebral body heights are intact. No suspicious osseous lesions are identified. Multilevel intervertebral disc space narrowing. No significant spinal stenosis. No significant neural foraminal stenosis. There is multilevel facet arthropathy. There is no prevertebral soft tissue swelling. Status post median sternotomy. ORIF right clavicle. The lung apices are clear. IMPRESSION: 1. No evidence of acute cervical spine fracture or traumatic malalignment. 2. Multilevel degenerative changes of the cervical spine.
[2025-06-17 12:19] LABS: INR 1.0 INR
--- NOTE | 2025-06-17 12:19 | RADIOLOGY REPORT ---
Indication: neck pain trauma Technique: CT axial images of the chest, abdomen and pelvis are obtained with intravenous contrast. Coronal and sagittal reformats were obtained. Radiation Dose Information: CTDI volume is 21.3 mGy. Dose-length product is 1610 mGy*cm Comparison: None FINDINGS: Trachea patent. No pneumothorax. Bilateral atelectasis. No pleural effusion. Heart normal in size. Coronary artery calcification disease. Aortic atherosclerotic disease. No supraclavicular, axillary lymphadenopathy. Adrenal glands, spleen, pancreas unremarkable in shape. Hepatic cysts measuring up to [address] evidence for cholelithiasis. Liver capsule nodular morphology. No hydronephrosis. Nonobstructing left renal calculus measuring 3 mm. Small hiatal hernia. Small bowel loops normal in caliber. Moderate volume stool in the colon. Normal appendix. Abdominal aortic atherosclerotic disease. Bladder is partially distended. No free pelvic fluid. No inguinal lymphadenopathy. Hbcl-[id number] bilateral sacroiliac degenerative joint disease. Postsurgical changes right clavicle. Left shoulder arthroplasty. Multiple old right rib fractures. Multiple old left rib fractures. L4 vertebral body compression fracture extending through the superior and inferior endplates with approximately 20% loss height. No significant retropulsion. IMPRESSION: Acute L4 vertebral body compression fracture extending through the superior and inferior endplates, 20% loss height. Atherosclerotic, coronary artery calcification disease. Nonobstructing left renal calculus. Nodular liver capsule morphology could represent cirrhosis. Correlate with appropriate lab values and clinical history. Other findings as described above.
--- NOTE | 2025-06-17 12:36 | RADIOLOGY REPORT ---
CT CT L SPINE RECONSTRUCTIION, CT CT T SPINE RECONSTRUCTION Indication: neck pain trauma EXAM DATE: 06/17/2025 11:34 AM COMPARISON: CT chest abdomen pelvis from today TECHNIQUE: CT of the thoracic and lumbar spine without intravenous contrast. FINDINGS: There is an acute L4 vertebral body compression fracture extending through the superior, inferior endplates with approximately 20% loss height. No significant retropulsion Moderate lumbar multilevel disc space narrowing meters anterolisthesis L4 upon L5 vacuum disc phenomena L2 3, L4-5. The Thoracic vertebral body heights are maintained. Moderate thoracic multilevel disc space narrowing. Prominent anterior thoracic osteophytosis. IMPRESSION: Acute L4 vertebral body compression fracture extending through the superior and inferior endplates with 20% loss height. Moderate Thoracic, lumbar degenerative disc disease
[2025-06-17] MEDS ORDERED: HYDR-3965 PO (13:20)
[2025-06-17 13:23] VITALS: BP 137/79; PULSE 84; RESP 20; O2SAT 92
== END 2025-06-17 13:36 | disposition home or self-care (01) ==
LOC: ER 10:47
DX: S32.048A Other fracture of fourth lumbar vertebra, initial encounter for closed fracture (principal); I12.9 Hypertensive chronic kidney disease with stage 1 through stage 4 chronic kidney disease, or unspecified chronic kidney disease; E11.22 Type 2 diabetes mellitus with diabetic chronic kidney disease; N18.9 Chronic kidney disease, unspecified; I25.10 Atherosclerotic heart disease of native coronary artery without angina pectoris; G47.30 Sleep apnea, unspecified; E78.00 Pure hypercholesterolemia, unspecified; Z88.1 Allergy status to other antibiotic agents; Z88.8 Allergy status to other drugs, medicaments and biological substances; Z95.1 Presence of aortocoronary bypass graft; Z79.899 Other long term (current) drug therapy; Z56.0 Unemployment, unspecified; W11.XXXA Fall on and from ladder, initial encounter; Y93.89 Activity, other specified; Y92.89 Other specified places as the place of occurrence of the external cause; Y99.8 Other external cause status
CPT/HCPCS: 36415; 70450; 71250; 72125; 74176; 80053; 82550; 82553; 83690; 84484; 85025; 85610; 93005; 99284